=== PATIENT | male | born 1970 | race Caucasian/White ===

== ENCOUNTER 2020-10-04 06:28 | Emergency (ER) | payer BC ==
[~2020-10-04 06:28] MED LIST: ADULT LOW DOSE81 MG PO; CLEOCIN HCL300 MG PO; CRESTOR 10 MG T10 MG PO; PERCOCET 5-3251 EACH PO; PROTONIX40 MG PO; ZYVOX600 MG PO
[2020-10-04 08:30] LABS: HEMOGLOBIN 15.2 gm/dl (14.0-17.5); RED BLOOD COUNT 5.12 M/UL (4.20-5.50)
[2020-10-04 08:53] LABS: BUN/CREATININE RATIO 15 (0-10)
[2020-10-04] MEDS ORDERED: CLINDAMYCIN HC300 MG PO (10:41)
== END 2020-10-04 11:47 | disposition home or self-care (01) ==
LOC: ER1 06:28
PROVIDERS: Emergency Medicine
DX: L03.211 Cellulitis of face (principal); Z88.0 Allergy status to penicillin; Z88.1 Allergy status to other antibiotic agents
CPT/HCPCS: 70491; 80053; 85025; 96374; 99283; Q9967

== ENCOUNTER → 2021-05-07 | Day surgery (SDC) | payer BC ==
[~2021-05-07] MED LIST changes: +CLINDAMYCIN HC300 MG PO
== END | disposition home or self-care (01) ==
LOC: OR 04-30 09:35
DX: K31.9 Disease of stomach and duodenum, unspecified (principal); D12.0 Benign neoplasm of cecum; Z12.11 Encounter for screening for malignant neoplasm of colon; R13.14 Dysphagia, pharyngoesophageal phase; E78.00 Pure hypercholesterolemia, unspecified; Z88.0 Allergy status to penicillin; F17.210 Nicotine dependence, cigarettes, uncomplicated; E66.9 Obesity, unspecified; Z20.822 Contact with and (suspected) exposure to COVID-19; K64.0 First degree hemorrhoids; Z79.82 Long term (current) use of aspirin
CPT/HCPCS: J2704; J7040

== ENCOUNTER 2021-08-08 00:46 | Emergency (ER) | payer BC ==
[2021-08-08 02:53] LABS: HEMOGLOBIN 14.6 gm/dl (14.0-17.5); RED BLOOD COUNT 4.68 M/UL (4.20-5.50); WHITE BLOOD COUNT 12.1 K/UL (4.5-11.0)
[2021-08-08 03:25] LABS: BUN/CREATININE RATIO 13 (0-10)
[2021-08-08] MEDS ORDERED: VIBRAMYCIN100 MG PO (03:36)
[2021-08-08] MEDS ORDERED: PREDNISONE 10 M10 MG PO (03:36)
== END 2021-08-08 03:30 | disposition home or self-care (01) ==
LOC: ER1 00:46
PROVIDERS: Physician Assistant
DX: J98.01 Acute bronchospasm (principal); J18.9 Pneumonia, unspecified organism; F17.210 Nicotine dependence, cigarettes, uncomplicated; Z88.0 Allergy status to penicillin; Z20.822 Contact with and (suspected) exposure to COVID-19
CPT/HCPCS: 0240U; 71045; 80053; 82550; 82553; 84484; 85025; 94664; 96374; 99283; J1100